=== PATIENT | female | born 1995 | race Caucasian/White ===

== ENCOUNTER 2021-09-16 11:16 | Emergency (ER) | payer BC, MEDICAID ==
[~2021-09-16] VITALS: Ht 165.1 cm; Wt 58.1 kg
--- NOTE | 2021-09-16 12:00 | NUR ---
Recived pt walking in from home c/o abdominale pain with nausea and vomition and diarrhea sterted last night urine pregancy done negative
--- NOTE | 2021-09-16 12:11 | NUR ---
Wating to seen by provider
[2021-09-16] MEDS ORDERED: ONDANSETRON HCL/PF 4 MG/2 ML VIAL ONE (12:23)
[2021-09-16] MEDS ORDERED: MORPHINE SULFATE INJ 2 MG/ML DISP.SYRIN ONE (12:24)
[2021-09-16] MEDS ORDERED: IV LR 1000 ML 1,000 ML IV ONE (12:30)
[2021-09-16] MEDS ORDERED: MORPHINE SULFATE INJ 2 MG/ML DISP.SYRIN IV ONE (12:30)
[2021-09-16] MEDS ORDERED: ONDANSETRON HCL/PF - ER 4 MG/2 ML VIAL IV ONE (12:30)
[2021-09-16 12:42] LABS: EOSINOPHILS % (AUTO) 0.8 % (0.0-6.0); HEMATOCRIT 42 % (33-45); HEMOGLOBIN 13.9 g/dL (11.5-14.8); LYMPHOCYTES # (AUTO) 0.1 K/uL (0.8-4.8); LYMPHOCYTES % (AUTO) 1.3 % (20.0-44.0); MEAN CORPUSCULAR HGB CONC 33 g/dl (31.0-36.0); MEAN CORPUSCULAR VOLUME 91 fL (82-100); MONOCYTES # (AUTO) 0.4 K/uL (0.1-1.30); MONOCYTES % (AUTO) 3.8 % (2.0-12.0); NEUTROPHILS % (AUTO) 94.1 % (43.0-81.0); PLATELET COUNT (AUTO) 192 K/uL (150-450); RED BLOOD CELL COUNT(AUTO) 4.63 MIL/uL (4.0-5.2); WHITE BLOOD COUNT (AUTO) 11.7 K/uL (4.3-11.0)
[2021-09-16 12:59] LABS: BILIRUBIN,URINE NEGATIVE (NEGATIVE); COLOR,URINE YELLOW (YELLOW); LEUKOCYTE ESTERASE ,URINE NEGATIVE (NEGATIVE); NITRITE, URINE NEGATIVE (NEGATIVE); PH,URINE 5.5 (5.0-8.0); PROTEIN,URINE NEGATIVE (NEGATIVE); UGLUCOSE NEGATIVE (NEGATIVE); UROBILINOGEN,URINE 0.2 EU/dL (0.2)
[2021-09-16 13:03] LABS: BILIRUBIN,DIRECT 0.1 mg/dL (0.0-0.2); BILIRUBIN,TOTAL 0.6 mg/dL (0.2-1.0); CALCIUM, SERUM 8.9 mg/dL (8.5-10.1); CREATININE 0.6 mg/dL (0.6-1.3); POTASSIUM 3.8 mmol/L (3.5-5.1); TOTAL PROTEIN, SERUM 7.6 g/dL (6.4-8.2)
[2021-09-16 13:06] LABS: SQUAMOUS EPITHELIAL CELL,UR Few /HPF (None Seen)
[2021-09-16 13:07] LABS: RBC,URINE 0-2 /HPF (0-2)
[2021-09-16 13:08] LABS: BACTERIA,URINE Few /HPF (None Seen); WBC,URINE 0-2 /HPF (0-3)
[2021-09-16] MEDS ORDERED: IV NS 0.9% 250 ML IV ONE (13:27)
[2021-09-16] MEDS ORDERED: IOHEXOL-300 100 ML VIAL IV ONE (13:27)
[2021-09-16] MEDS ORDERED: ONDA4TAB11 PO (14:27)
--- NOTE | 2021-09-16 14:39 | NUR ---
IV removed. Catheter intact and site benign. Pressure and 4x4 applied to site. No bleeding noted. Patient discharged to home in stable condition. Written and verbal after care instructions given. Patient verbalizes understanding of instruction.
[2021-09-16 14:40] VITALS: BP 112/57
== END 2021-09-16 14:41 | disposition home or self-care (01) ==
LOC: ER 11:17
DX: K52.9 Noninfective gastroenteritis and colitis, unspecified (principal); R11.2 Nausea with vomiting, unspecified; K21.9 Gastro-esophageal reflux disease without esophagitis; Z79.899 Other long term (current) drug therapy; Z88.2 Allergy status to sulfonamides; Z88.1 Allergy status to other antibiotic agents
CPT/HCPCS: 36415; 74177; 80048; 80076; 81001; 83690; 84703; 85025; 96361; 96374; 96375; 99285; J2270; J2405 ×2; J7030; J7050; J7120 ×2; Q9967

== ENCOUNTER 2022-01-28 01:18 | Emergency (ER) | payer BC ==
[~2022-01-28] VITALS: Ht 165.1 cm; Wt 61.2 kg
[~2022-01-28 01:18] MED LIST: ONDA4TAB11 PO
--- NOTE | 2022-01-28 01:22 | NUR ---
BIBS C/O LEFT FIFTH DIGIT TOE PAIN. NO DEFORMITY NOTED. PT AWAKE A/OX4. TOLERATING R/A WELL WITH NO RESP DISTRESS OR SOB. AMBULATORY WITH STEADY GAIT. SAFETY MEASURES IN PLACE.
--- NOTE | 2022-01-28 01:43 | NUR ---
[employer] WORK[employer] AT PT'S BEDSIDE
[2022-01-28] MEDS ORDERED: KETOROLAC TROMETHAMINE INJ 30 MG/ML VIAL ONE (02:29)
[2022-01-28] MEDS: KETOROLAC TROMETHAMINE INJ 30 MG/ML VIAL IM ONE (02:39)
--- NOTE | 2022-01-28 04:35 | NUR ---
CALLED [facility] TO F/U WITH XRAY REPORT. STATED ETA TO FOR REPORT ABOUT 60MINS - 90MINS. DR. LAW MORALES AWARE.
--- NOTE | 2022-01-28 04:40 | NUR ---
EMT AT PT'S BEDSIDE APPLYING SPLINT TO PT'S LEFT 4TH & 5TH DIGIT.
[2022-01-28] MEDS ORDERED: IBUP-1957 PO (04:42)
[2022-01-28 04:52] VITALS: BP 117/73
--- NOTE | 2022-01-28 04:56 | NUR ---
Patient discharged to home in stable condition. Written and verbal after care instructions given. Patient verbalizes understanding of instruction. PT ambulatory with a steady gait with left ortho-shoe
== END 2022-01-28 05:00 | disposition home or self-care (01) ==
LOC: ER 01:22
DX: S92.502A Displaced unspecified fracture of left lesser toe(s), initial encounter for closed fracture (principal); Z88.2 Allergy status to sulfonamides; Z88.8 Allergy status to other drugs, medicaments and biological substances; Z79.899 Other long term (current) drug therapy; W22.8XXA Striking against or struck by other objects, initial encounter; Y93.89 Activity, other specified; Y92.89 Other specified places as the place of occurrence of the external cause; Y99.8 Other external cause status
CPT/HCPCS: 99283; 96372; 73660; J1885

== ENCOUNTER 2022-07-15 16:55 | Emergency (ER) | payer BC ==
[~2022-07-15] VITALS: Ht 170.2 cm; Wt 59.0 kg
[~2022-07-15 16:55] MED LIST changes: +IBUP-1957 PO
--- NOTE | 2022-07-15 18:03 | NUR ---
PT SEEN BY ER DOC
--- NOTE | 2022-07-15 18:05 | NUR ---
SEIZURE PRECS INITIATED
--- NOTE | 2022-07-15 18:09 | NUR ---
PT BEING TAKEN TO CT
--- NOTE | 2022-07-15 18:35 | NUR ---
LABS COLLECTED AND SENT TO LAB
--- NOTE | 2022-07-15 18:36 | NUR ---
20G RAC STARTED DRESSED NO S/S OF INFLITRATION
--- NOTE | 2022-07-15 19:01 | NUR ---
URINE COLLECTED AND SENT TO LAB
[2022-07-15 19:33] LABS: ALBUMIN 4.2 g/dL (3.4-5.0); BILIRUBIN,DIRECT 0.1 mg/dL (0.0-0.2); BILIRUBIN,TOTAL 0.3 mg/dL (0.2-1.0); CALCIUM, SERUM 9.2 mg/dL (8.5-10.1); CREATININE 0.9 mg/dL (0.6-1.3); POTASSIUM 3.4 mmol/L (3.5-5.1)
[2022-07-15 19:57] LABS: BASOPHILS % (AUTO) 0.2 % (0.0-2.0); EOSINOPHILS % (AUTO) 0.4 % (0.0-6.0); HEMATOCRIT 39 % (33-45); HEMOGLOBIN 13.4 g/dL (11.5-14.8); LYMPHOCYTES # (AUTO) 0.6 K/uL (0.8-4.8); MEAN CORPUSCULAR HGB CONC 35 g/dl (31.0-36.0); MEAN CORPUSCULAR VOLUME 89 fL (82-100); MONOCYTES # (AUTO) 0.5 K/uL (0.1-1.30); MONOCYTES % (AUTO) 5.4 % (2.0-12.0); NEUTROPHILS # (AUTO) 8.6 K/uL (1.8-8.9); PLATELET COUNT (AUTO) 214 K/uL (150-450); RED BLOOD CELL COUNT(AUTO) 4.36 MIL/uL (4.0-5.2); WHITE BLOOD COUNT (AUTO) 9.8 K/uL (4.3-11.0)
[2022-07-15] MEDS ORDERED: POTASSIUM CHLORIDE 20 MEQ TAB.PRT.SR PO ONE ×2 (20:00→20:16)
--- NOTE | 2022-07-15 20:20 | NUR ---
DR SALINAS AT BEDSIDE. TALKING TO PARENTS OF PATIENT
[2022-07-15] MEDS ORDERED: IBUP-1953 PO (20:22)
--- NOTE | 2022-07-15 21:09 | NUR ---
Patient discharged to home in stable condition. Written and verbal after care instructions given. Patient verbalizes understanding of instruction.
--- NOTE | 2022-07-15 21:09 | NUR ---
IV CANNULA REMOVED
[2022-07-15 21:11] VITALS: BP 121/73
== END 2022-07-15 21:11 | disposition home or self-care (01) ==
LOC: ER 16:58
DX: R56.9 Unspecified convulsions (principal); M25.512 Pain in left shoulder; Z88.2 Allergy status to sulfonamides; Z88.8 Allergy status to other drugs, medicaments and biological substances; Z79.899 Other long term (current) drug therapy
CPT/HCPCS: 36415; 70450-TC; 73030-TC; 80048-TC; 80076-TC; 82962-TC; 84703-TC; 85025-TC

== ENCOUNTER 2022-11-07 09:27 | Emergency (ER) | payer BC ==
[~2022-11-07] VITALS: Ht 165.1 cm; Wt 69.9 kg
[~2022-11-07 09:27] MED LIST changes: +IBUP-1953 PO
[2022-11-07] MEDS ORDERED: LORAZEPAM INJ 2 MG/ML VIAL ONE (09:43)
--- NOTE | 2022-11-07 09:57 | NUR ---
patient [id number] from home, witnessed seizure, no oral trauma. IV intact and patent. Kept comfortable. Comnnected to the monitor and pulse ox. will continue to monitor accordingly.
[2022-11-07] MEDS ORDERED: LORAZEPAM INJ 2 MG/ML VIAL IV ONE (10:00)
[2022-11-07] MEDS ORDERED: LEVETIRACETAM (500MG) 1,000 MG in IV NS 0.9% 100 ML IV SCH (10:00)
[2022-11-07] MEDS ORDERED: IV NS 0.9% 1,000 ML IV ONE (10:00)
[2022-11-07] MEDS ORDERED: ONDANSETRON HCL/PF 4 MG/2 ML VIAL ONE (11:26)
[2022-11-07] MEDS ORDERED: ONDANSETRON HCL/PF 4 MG/2 ML VIAL IV ONE (11:30)
[2022-11-07 11:39] VITALS: BP 117/79
--- NOTE | 2022-11-07 11:40 | NUR ---
Patient discharged to home in stable condition. Written and verbal after care instructions given. Patient verbalizes understanding of instruction.IV removed. Catheter intact and site benign. Pressure and 4x4 applied to site. No bleeding noted.
== END 2022-11-07 11:40 | disposition home or self-care (01) ==
LOC: ER 09:31
DX: G40.909 Epilepsy, unspecified, not intractable, without status epilepticus (principal); J06.9 Acute upper respiratory infection, unspecified; R05.9 Cough, unspecified; R09.81 Nasal congestion; Z72.821 Inadequate sleep hygiene; Z88.2 Allergy status to sulfonamides; Z88.8 Allergy status to other drugs, medicaments and biological substances
CPT/HCPCS: 99284; 96365; 96375; 93005; J2060; J2405; J7030 ×2; A4223; J1953

== ENCOUNTER 2023-04-06 00:43 | Emergency (ER) | payer BC ==
[~2023-04-06] VITALS: Ht 167.6 cm; Wt 64.9 kg
[2023-04-06] MEDS ORDERED: SUMATRIPTAN SUCCINATE 6 MG/0.5 ML VIAL SQ ONE ×2 (02:00→02:21)
[2023-04-06] MEDS ORDERED: METOCLOPRAMIDE HCL 10 MG/2 ML VIAL IV ONE (02:00)
[2023-04-06] MEDS ORDERED: IV NS 0.9% 1,000 ML BAG IV ONE (02:00)
[2023-04-06] MEDS ORDERED: METOCLOPRAMIDE HCL 10 MG/2 ML VIAL ONE (02:21)
[2023-04-06 04:41] VITALS: BP 148/75; TEMP 98.1; O2SAT 97
== END 2023-04-06 04:44 | disposition home or self-care (01) ==
LOC: ER 00:57
DX: R51.9 Headache, unspecified (principal); Z88.2 Allergy status to sulfonamides; Z88.8 Allergy status to other drugs, medicaments and biological substances
CPT/HCPCS: 99285; 96374; 70450; 96361; 96372; J3030; J2765; J7030